=== PATIENT | male | born 1960 | race Hispanic/Latino ===

== ENCOUNTER 2025-02-01 15:11 | Inpatient (IN) | payer MEDICARE ==
[~2025-02-01] VITALS: Ht 165.1 cm; Wt 63.8 kg
[2025-02-01 15:12] VITALS: TEMP 98.5
[2025-02-01 15:29] LABS: BASOPHILS % 0.5 % (0.0-1.0); EOSINOPHILS % 1.5 % (0.0-6.0); LYMPHOCYTES % 30.9 % (18.0-39.1); MONOCYTES % 6.8 % (4.4-11.3); NEUTROPHILS % 60.0 % (38.7-80.0); RED CELL DISTRIBUTION WIDTH 12.7 % (11.7-14.4)
[2025-02-01 15:40] LABS: INR 0.92
[2025-02-01 15:47] LABS: EST GLOMERULAR FILTRATION RATE 78.0 ML/MIN (>=60)
[2025-02-01 16:00] VITALS: PULSE 75; RESP 14
[2025-02-01] MEDS ORDERED: SODIUM CHLORIDE 0.9% 100 ML ONE (16:06)
[2025-02-01] MEDS ORDERED: IOPAMIDOL 370 MG/ML 100 ML INFUS..BTL INJ ONE (16:06)
[2025-02-01] MEDS ORDERED: CLOPIDOGREL BISULFATE 75 MG TAB ONE (16:07)
[2025-02-01] MEDS: CLOPIDOGREL BISULFATE 300 MG TAB-DO NOT STOCK PO ONE (16:08)
[2025-02-01] MEDS: ASPIRIN 81 MG CHEW TAB PO ONE (16:09)
[2025-02-01] MEDS ORDERED: DEXTROSE 50% SYRINGE 50 ML IV PRN (16:45)
[2025-02-01] MEDS ORDERED: LIDOCAINE 4% PATCH TP PRN (16:45)
[2025-02-01] MEDS ORDERED: ALBUTEROL/IPRATROPIUM 3 ML NEB NEB PRN (16:45)
[2025-02-01] MEDS ORDERED: ACETAMINOPHEN 325 MG TAB PO PRN (16:45)
[2025-02-01] MEDS ORDERED: DIPHENHYDRAMINE HCL 25 MG CAP PO PRN (16:45)
[2025-02-01] MEDS ORDERED: ONDANSETRON HCL INJ 2MG/ML 2ML 2 MG/ML VIAL IV PRN (16:45)
[2025-02-01] MEDS ORDERED: POTASSIUM CHLORIDE 20 MEQ TAB CR PO PRN (16:45)
[2025-02-01] MEDS ORDERED: DOCUSATE SODIUM 100 MG CAP PO PRN (16:45)
[2025-02-01] MEDS ORDERED: MELATONIN 5 MG TABLET PO PRN (16:45)
[2025-02-01] MEDS ORDERED: HYDRALAZINE HCL 20 MG/ML VIAL IV PRN (16:45)
[2025-02-01] MEDS ORDERED: SIMETHICONE 80 MG CHEW PO PRN (16:45)
[2025-02-01] MEDS ORDERED: BENZONATATE 100 MG CAP PO PRN (16:45)
[2025-02-01 17:15] VITALS: BP 162/81; PULSE 72; RESP 20; TEMP 97.9; O2SAT 100
[2025-02-01 17:29] VITALS: BP 162/81; PULSE 72; RESP 20; TEMP 97.9; O2SAT 100
[2025-02-01 18:00] VITALS: BP 162/81; PULSE 72; RESP 20; TEMP 97.9; O2SAT 100
[2025-02-01] MEDS: SODIUM CHLORIDE 0.9% 1000ML 1,000 ML IV SCH (18:14)
[2025-02-01 20:00] VITALS: BP 146/79; PULSE 77; RESP 17; TEMP 98.6; O2SAT 100
[2025-02-01] MEDS ORDERED: ATORVASTATIN 40 MG TAB PO SCH (21:00)
[2025-02-01] MEDS: ATORVASTATIN 40 MG TAB PO SCH (21:08)
[2025-02-02] MEDS ORDERED: PANTOPRAZOLE SOD 40 MG TABEC PO SCH (07:30)
[2025-02-02] MEDS ORDERED: CLOPIDOGREL BISULFATE 75 MG TAB PO SCH (09:00)
[2025-02-02] MEDS ORDERED: ASPIRIN 81 MG ENTERIC COATED PO SCH (09:00)
== END 2025-02-01 23:20 | disposition short-term general hospital (02) | DRG 65 ==
LOC: ER 15:19 → ERHOLD 16:05 → MED/SURG2 17:05
PROVIDERS: ADMIT Internal Medicine; ATTEND Internal Medicine
DX: I63.311 Cerebral infarction due to thrombosis of right middle cerebral artery (principal); G81.94 Hemiplegia, unspecified affecting left nondominant side; E11.9 Type 2 diabetes mellitus without complications; I10 Essential (primary) hypertension; E78.5 Hyperlipidemia, unspecified; R29.810 Facial weakness; R47.1 Dysarthria and anarthria; R29.6 Repeated falls; R47.81 Slurred speech
CPT/HCPCS: 36415; 70450; 70496; 70498; 80053; 82948; 84484; 85025; 85610; 93005; 99284; J7030; J7050; Q9967